=== PATIENT | female | born 1970 | race Two or more races ===

== ENCOUNTER 2024-09-23 05:34 | Day surgery (SDC) | payer OTHER ==
[2024-09-15 11:15] VITALS: BP 137/88
[~2024-09-23] VITALS: Ht 165.1 cm; Wt 86.2 kg
[~2024-09-23 05:34] MED LIST: CRESTOR 20MG; DIMS; LORADAMED10 MG; METOPROLOL SUCC50 MG; PROTONIX40 MG PO; SYNTHROID88 MCG
[2024-09-23] MEDS ORDERED: POVIDONE-IODINE 118 ML BOTT TOP ONE (09:30)
[2024-09-23] MEDS ORDERED: METRONIDAZOLE/SODIUM CHLORIDE 500 MG/100 ML PIGGYBACK IV SCH ×2 (09:30)
[2024-09-23] MEDS ORDERED: DIBUCAINE 30 GM TUBE RECTAL ONE (09:30)
[2024-09-23] MEDS ORDERED: HEMOSTATIC MATRIX 1 KIT KIT TOP ONE (09:30)
[2024-09-23] MEDS ORDERED: BUPIVACAINE LIPOSOME/PF 266 MG/20 ML VIAL IJ ONE (09:30)
[2024-09-23] MEDS ORDERED: CEFTRIAXONE SODIUM 2,000 MG VIAL IV SCH (09:30)
[2024-09-23] MEDS ORDERED: BUPIVACAINE HCL 30 ML VIAL IJ ONE (09:45)
== END 2024-09-23 15:30 | disposition home or self-care (01) ==
LOC: CIR.AMB 05:34
PROVIDERS: ATTEND Colon & Rectal Surgery
DX: K64.2 Third degree hemorrhoids (principal); K64.4 Residual hemorrhoidal skin tags; K59.09 Other constipation